=== PATIENT | male | born 1980 | race Caucasian/White ===

== ENCOUNTER 2019-05-09 15:41 | Emergency (ER) | payer SELFPAY ==
[2019-05-09 15:43] VITALS: BP 131/80; PULSE 90; RESP 18; O2SAT 98; BMI 27.8
[2019-05-09 15:53] VITALS: BP 125/92; PULSE 97; RESP 16; O2SAT 98
--- NOTE | 2019-05-09 15:53 | XR_ITS ---
WS: [id number] Portable AP upright chest, 05/09/2019 Clinical Data: chest pain Comparison: None. Findings: No nodules, masses or effusions are seen. The heart is normal. The pulmonary vascularity is not increased. No pneumonia or pneumothorax is seen. XR/XR chest 1V portable [id number] Impression: Negative chest.
--- NOTE | 2019-05-09 15:53 | ECG_ITS ---
Measurements Intervals [place] Rate: 92 P: 50 W[place]: 159 QRS: -42 QRSD: 100 T: 48 QT: 336 QTc: 417 SINUS RHYTHM LEFT AXIS DEVIATION [QRS AXIS < -30] No previous ECG available for comparison Electronically Signed On 05-09-2019 21:20:19 HAND DRAWER IN by Ellen Díaz M.D. [email or web address]
[2019-05-09 15:55] VITALS: RESP 16
[2019-05-09] MEDS: aspirin 81 mg Chew Tablet 324 MG PO (15:57)
[2019-05-09 16:06] LABS: Basophils # 0.1 10^3/uL (0.0-0.1); Basophils % 0.4 %; Eosinophils % 0.1 %; Hematocrit 44.8 % (42.0-52.0); Hemoglobin 15.5 g/dL (11.7-16.6); Lymphocytes % 9.6 %; Mean Corpuscular HGB Conc 34.6 g/dL (30.0-36.0); Mean Corpuscular Hemoglobin 31.3 pg (28.0-34.0); Mean Corpuscular Volume 90.3 fL (80-94); Mean Platelet Volume 10.9 fL (7.4-10.4); Monocytes # 1.3 10^3/uL (0.2-0.9); Monocytes % 6.2 %; Neutrophils # 16.8 10^3/uL (1.8-7.7); Neutrophils % 83.3 %; Nucleated Red Blood Cells % 0 %; Platelet Count 314 10^3/cmm (130-400); Red Blood Count 4.96 10^6/uL (4.1-5.3); Red Cell Distribution Width 13.1 % (12.1-15.1); White Blood Count 20.2 10^3/uL (4.0-10.0)
[2019-05-09 16:17] LABS: Alanine Aminotransferase 28 U/L (0-41); Albumin Level 4.5 g/dL (3.5-5.2); Alkaline Phosphatase 71 IU/L (40-130); Anion Gap 17.2 (5-19); Aspartate Amino Transferase 25 U/L (0-40); Blood Urea Nitrogen 16 mg/dL (6-20); Calcium 10.1 mg/dL (8.5-10.5); Carbon Dioxide 24 mmol/L (22-29); Chloride 98 mmol/L (98-107); Creatinine Clr Calc Pharmacy 102.8626; Globulin 3.2 g/dL (1.3-4.6); Glomerular Filtration Rate 74.1 mL/min (90-130); Glucose 108 mg/dL (65-115); Lipase 44 U/L (13-60); Potassium 4.2 mmol/L (3.5-5.1); Sodium 135 mmol/L (136-145); Total Bilirubin 0.4 mg/dL (0.15-1.2); Total Protein 7.7 g/dL (6.6-8.7)
--- NOTE | 2019-05-09 16:17 | W.ED.CHESTPA ---
Documented by User: Mike Amaral DO 05/14/19 10:28 HPI - Chest Pain General: Chief Complaint: Chest Pain Stated Complaint: CP Time Seen by Provider: 05/09/19 15:47 History of Present Illness: HPI narrative: 38-year-old male comes in complaining chest pain that began around noon today began while he was sitting at rest radiates up into his jaw not into his shoulder or back. No recent trauma no recent fever sweats chills cough. He denies any abdominal pain. No history of DVT. MD complaint: chest pain Associated symptoms: Reports dyspnea; Deny abdominal pain, fever(s), nausea or vomiting Review of Systems Const: Denies: fever, chills, body aches, change in appetite, fatigue or malaise ENMT: Denies: throat pain, ear pain, nasal discharge or nasal congestion Card: Reports: chest pain and shortness of breath on exertion; Denies: edema or shortness of breath when lying down Resp: Reports: shortness of breath; Denies: productive cough or non-productive cough GI: Denies: abdominal pain, nausea, vomiting, vomiting blood, coffee grounds in vomit, diarrhea, constipation, bloating, blood in stool or black tarry stool : Denies: flank pain, painful urination, urinary frequency or urinary urgency Skin/Breast: Denies: rash or itching PFSH ED PFSH: Social History Smoking and tobacco status: current every day smoker Physical Exam Const: COMMON NORMALS: no apparent distress GENERAL APPEARANCE: cooperative and comfortable ORIENTATION/CONSCIOUSNESS: Yes awake, Yes oriented to person, Yes oriented to place and Yes oriented to time HENMT: COMMON NORMALS: normocephalic, head/scalp atraumatic, hearing grossly normal bilaterally, external ears normal, EAC's normal, TM's normal bilaterally, nasal mucous membranes and turbinates normal, moist oral mucous membranes and oropharynx normal HEAD & SCALP: normocephalic and atraumatic NOSE: nasal mucous membranes and turbinates normal EXTERNAL EAR: Yes external ears normal EXTERNAL AUDITORY CANAL: EAC's normal TYMPANIC MEMBRANE: TM's normal bilaterally Eye: COMMON NORMALS: PERRL, EOMs intact bilaterally, conjunctivae normal and no scleral icterus CONJUNCTIVA: Yes conjunctivae normal PUPIL: Yes PERRL Neck/C-Spine: COMMON NORMALS: full ROM, no lymphadenopathy, supple and no JVD Lymph: LYMPHATIC: no lymphadenopathy noted and no lymphedema noted Resp: COMMON NORMALS: normal respiratory effort, no retractions, no use of accessory muscles and clear to auscultation bilaterally AUSCULTATION: clear to auscultation bilaterally Cardio: COMMON NORMALS: no JVD, regular rate, regular rhythm and no murmurs RATE: regular rate RHYTHM: regular rhythm GI: COMMON NORMALS: soft to palpation and no hepatosplenomegaly AUSCULTATION: Yes normoactive bowel sounds PALPATION: Yes soft, No tender, No guarding and Yes no hepatosplenomegaly Extremity: COMMON NORMALS: normal to inspection, normal capillary refill, no clubbing, cyanosis or edema, no calf tenderness and no pedal edema Neuro: SENSORIUM/ORIENTATION: Yes oriented to person, Yes oriented to place and Yes oriented to time Skin: COMMON NORMALS: no rashes or lesions noted GENERAL SKIN EXAM: no rashes or lesions noted Course ED course: Care turned over to Dr. Soni at change of shift Vital Signs: Vital signs: Vital Signs Pulse Rate 99 05/09/19 21:01 Respiratory Rate 16 05/09/19 21:01 Blood Pressure 128/81 05/09/19 21:01 Pulse Oximetry 99 05/09/19 21:01 MDM - Chest Pain Lab Data: Labs: Lab Results 05/09/19 05/09/19 05/09/19 Range/Units 15:54 15:54 15:54 WBC 20.2 H (4.0-10.0) 10^3/ uL RBC 4.96 (4.1-5.3) 10^6/u L Hgb 15.5 (11.7-16.6) g/dL Hct 44.8 (42.0-52.0) % MCV 90.3 (80-94) fL MCH 31.3 (28.0-34.0) pg MCHC 34.6 (30.0-36.0) g/dL RDW 13.1 (12.1-15.1) % Plt Count 314 (130-400) 10^3/c mm MPV 10.9 H (7.4-10.4) fL Neut % (Auto) 83.3 % Lymph % (Auto) 9.6 % [place] % (Auto) 6.2 % Eos % (Auto) 0.1 % Baso % (Auto) 0.4 % Neut # (Auto) 16.8 H (1.8-7.7) 10^3/u L Lymph # (Auto) 2.0 (0.8-4.8) 10^3/u L [place] # (Auto) 1.3 H (0.2-0.9) 10^3/u L Eos # (Auto) 0.0 (0.0-0.8) 10^3/u L Baso # (Auto) 0.1 (0.0-0.1) 10^3/u L Nucleated RBC % (a uto) 0 % Nucleated RBCs # 0.0 /100WBC PT 13.90 H (10.5-13.3) SECO NDS INR 1.07 (0.8-1.2) APTT 25.7 (23.9-36.7) SECO NDS Sodium 135 L (136-145) mmol/L Potassium 4.2 (3.5-5.1) mmol/L Chloride 98 (98-107) mmol/L Carbon Dioxide 24 (22-29) mmol/L Anion Gap 17.2 (5-19) BUN 16 (6-20) mg/dL Creatinine 1.1 (0.7-1.2) mg/dL GFR Calculation 74.1 L (90-130) mL/min Glucose 108 (65-115) mg/dL Lactic Acid (0.5-2.2) mmol/L Calcium 10.1 (8.5-10.5) mg/dL Total Bilirubin 0.4 (0.15-1.2) mg/dL AST 25 (0-40) U/L ALT 28 (0-41) U/L Alkaline Phosphata se 71 (40-130) IU/L Troponin T Baselin e (0-15) ng/mL Troponin T 120 Min yurok (0-15) ng/mL Delta Troponin T (0-10) ABS# Total Protein 7.7 (6.6-8.7) g/dL Albumin 4.5 (3.5-5.2) g/dL Globulin 3.2 (1.3-4.6) g/dL Lipase 44 (13-60) U/L Urine Color (Yellow) Urine Appearance (CLEAR) Urine pH (5-7) Ur Specific Gravit y (1.005-1.030) Urine Protein (Negative) Urine Glucose (UA) (Normal) Urine Ketones (Negative) Urine Blood (Negative) Urine Nitrate (Negative) Urine Bilirubin (NEGATIVE) Urine Urobilinogen (Negative) mg/dL Ur Leukocyte Sola ase (Negative) Urine RBC (0-2) /hpf Urine WBC (0-5) /hpf Ur Squamous Epith Cells (0-5) Urine Bacteria (NONE) Influenza Type A A g (Negative) POC Influenza B Ag (Negative) 05/09/19 05/09/19 05/09/19 Range/Units 15:54 17:55 19:02 WBC (4.0-10.0) 10^3/ uL RBC (4.1-5.3) 10^6/u L Hgb (11.7-16.6) g/dL Hct (42.0-52.0) % MCV (80-94) fL MCH (28.0-34.0) pg MCHC (30.0-36.0) g/dL RDW (12.1-15.1) % Plt Count (130-400) 10^3/c mm MPV (7.4-10.4) fL Neut % (Auto) % Lymph % (Auto) % [place] % (Auto) % Eos % (Auto) % Baso % (Auto) % Neut # (Auto) (1.8-7.7) 10^3/u L Lymph # (Auto) (0.8-4.8) 10^3/u L [place] # (Auto) (0.2-0.9) 10^3/u L Eos # (Auto) (0.0-0.8) 10^3/u L Baso # (Auto) (0.0-0.1) 10^3/u L Nucleated RBC % (a uto) % Nucleated RBCs # /100WBC PT (10.5-13.3) SECO NDS INR (0.8-1.2) APTT (23.9-36.7) SECO NDS Sodium (136-145) mmol/L Potassium (3.5-5.1) mmol/L Chloride (98-107) mmol/L Carbon Dioxide (22-29) mmol/L Anion Gap (5-19) BUN (6-20) mg/dL Creatinine (0.7-1.2) mg/dL GFR Calculation (90-130) mL/min Glucose (65-115) mg/dL Lactic Acid 0.9 (0.5-2.2) mmol/L Calcium (8.5-10.5) mg/dL Total Bilirubin (0.15-1.2) mg/dL AST (0-40) U/L ALT (0-41) U/L Alkaline Phosphata se (40-130) IU/L Troponin T Baselin e 6 (0-15) ng/mL Troponin T 120 Min yurok 6.00 (0-15) ng/mL Delta Troponin T 0 (0-10) ABS# Total Protein (6.6-8.7) g/dL Albumin (3.5-5.2) g/dL Globulin (1.3-4.6) g/dL Lipase (13-60) U/L Urine Color (Yellow) Urine Appearance (CLEAR) Urine pH (5-7) Ur Specific Gravit y (1.005-1.030) Urine Protein (Negative) Urine Glucose (UA) (Normal) Urine Ketones (Negative) Urine Blood (Negative) Urine Nitrate (Negative) Urine Bilirubin (NEGATIVE) Urine Urobilinogen (Negative) mg/dL Ur Leukocyte Sola ase (Negative) Urine RBC (0-2) /hpf Urine WBC (0-5) /hpf Ur Squamous Epith Cells (0-5) Urine Bacteria (NONE) Influenza Type A A g (Negative) POC Influenza B Ag (Negative) 05/09/19 05/09/19 Range/Units 19:17 19:43 WBC (4.0-10.0) 10^3/ uL RBC (4.1-5.3) 10^6/u L Hgb (11.7-16.6) g/dL Hct (42.0-52.0) % MCV (80-94) fL MCH (28.0-34.0) pg MCHC (30.0-36.0) g/dL RDW (12.1-15.1) % Plt Count (130-400) 10^3/c mm MPV (7.4-10.4) fL Neut % (Auto) % Lymph % (Auto) % [place] % (Auto) % Eos % (Auto) % Baso % (Auto) % Neut # (Auto) (1.8-7.7) 10^3/u L Lymph # (Auto) (0.8-4.8) 10^3/u L [place] # (Auto) (0.2-0.9) 10^3/u L Eos # (Auto) (0.0-0.8) 10^3/u L Baso # (Auto) (0.0-0.1) 10^3/u L Nucleated RBC % (a uto) % Nucleated RBCs # /100WBC PT (10.5-13.3) SECO NDS INR (0.8-1.2) APTT (23.9-36.7) SECO NDS Sodium (136-145) mmol/L Potassium (3.5-5.1) mmol/L Chloride (98-107) mmol/L Carbon Dioxide (22-29) mmol/L Anion Gap (5-19) BUN (6-20) mg/dL Creatinine (0.7-1.2) mg/dL GFR Calculation (90-130) mL/min Glucose (65-115) mg/dL Lactic Acid (0.5-2.2) mmol/L Calcium (8.5-10.5) mg/dL Total Bilirubin (0.15-1.2) mg/dL AST (0-40) U/L ALT (0-41) U/L Alkaline Phosphata se (40-130) IU/L Troponin T Baselin e (0-15) ng/mL Troponin T 120 Min yurok (0-15) ng/mL Delta Troponin T (0-10) ABS# Total Protein (6.6-8.7) g/dL Albumin (3.5-5.2) g/dL Globulin (1.3-4.6) g/dL Lipase (13-60) U/L Urine Color Yellow (Yellow) Urine Appearance Clear (CLEAR) Urine pH 7 (5-7) Ur Specific Gravit y 1.005 (1.005-1.030) Urine Protein Neg (Negative) Urine Glucose (UA) Norm (Normal) Urine Ketones Negative (Negative) Urine Blood Neg (Negative) Urine Nitrate Negative (Negative) Urine Bilirubin Neg (NEGATIVE) Urine Urobilinogen Norm (Negative) mg/dL Ur Leukocyte Sola ase Negative (Negative) Urine RBC None (0-2) /hpf Urine WBC None (0-5) /hpf Ur Squamous Epith Cells None (0-5) Urine Bacteria Trace (NONE) Influenza Type A A g Negative (Negative) POC Influenza B Ag Negative (Negative) Discharge Plan Discharge Patient Disposition: Home, Self-Care Clinical Impression: Influenza Chest pain Qualifiers: Chest pain type: chest pain on breathing Qualified Code(s): R07.1 - Chest pain on breathing Leukocytosis Qualifiers: Leukocytosis type: unspecified Qualified Code(s): D72.829 - Elevated white blood cell count, unspecified Condition: Stable Prescriptions: New Levaquin 500 mg tablet 500 mg PO DAILY 10 Days RF: 0 No Action aspirin 81 mg Tablet,Delayed Release (Dr/Ec) 81 mg PO DAILY RF: 0 Discharge Orders: Discharge Order (Routine); Ordered 05/09/19 Ordered By: Missy Schmidt Referrals: Kiara Fox DO [Physician] - 1-3 days Discharge Diet: Usual diet Discharge Activity: Increase activity as tolerated Patient Instructions: Chest Pain (ED), Influenza (ED), Leukocytosis (ED) Activity Restrictions/Additional Instructions: Please return to the ER immediately for any of the signs or symptoms listed on your discharge instruction sheets, worsening/changing of your symptoms, you are not getting better as quickly as expected, or for ANY other cause or concerns. I have offered to place her in the hospital for further cardiac evaluation and for evaluation of your fever and white count but you have declined. If you change your mind or your symptoms change/worsen at any time you are more than welcome to return to the ER for recheck and further evaluation and care. Be certain to follow-up at the [facility] or [place] [facility] [place] for recheck. If for any reason you are unable to be seen there return here to the ER for recheck. Stand Alone Forms: Work/School Release Discharge Date/Time: 05/09/19 21:02 Sign Out Sign Out Data: Patient Sign Out occurred on 05/09/19 at 18:29. Patient's care was discussed, and care was transferred from Mike Amaral DO to Missy Schmidt. Sign Out Comment: CTA chest pending, Last updated by Mike Amaral DO at 05/09/19 18:12 Coding Level of Care Code ED Qa Automation Developer for Chg Fwd Documented by User: Missy Schmidt 05/10/19 02:26 HPI - Chest Pain General: Chief Complaint: Chest Pain Stated Complaint: CP Time Seen by Provider: 05/09/19 15:47 PFSH ED PFSH: Social History Smoking and tobacco status: current every day smoker Course Vital Signs: Vital signs: Vital Signs Pulse Rate 99 05/09/19 21:01 Respiratory Rate 16 05/09/19 21:01 Blood Pressure 128/81 05/09/19 21:01 Pulse Oximetry 99 05/09/19 21:01 MDM - Chest Pain MDM Narrative: Medical decision making narrative: 1800 -Case signed over to me at change of shift from Dr. Amaral. Patient endorsed to me as chest pain at rest starting earlier today. Patient's not had any risk factors but cardiac evaluation underway. CTA also ordered. Upon my history the patient states he had constant chest pain since earlier today. He describes the pain as a sharp stabbing pain made worse by deep breathing. He denies any shortness of breath, diaphoresis, nausea vomiting or radiation of his symptoms. He states his pain is waxed and waned but has been constant since 11 AM. Discharge -the patient has had constant chest pain for over 8 hours. I believe this rules out a cardiac cause for his pain. Per the hospital chest pain pathway he has had pain beyond 6 hours with no EKG changes and one negative troponin should rule him out but he now has 2. Patient CTA is negative for dissection or PE. The patient now relates to me that he has a fever this morning. He states he is been chilled. He states he feels like he is coming down with the flu and he has known flu exposures. The flu is rampant in the area at this time. The patient declines to stay in the hospital as I have endorsed this more so to evaluate him for his pronounced leukocytosis but also to have a formal cardiac rule out. The patient declines but he states he is willing to get rechecked as I have suggested. He will follow[place] either [place] [facility] [place] or or at the [facility] walk-in clinic. He understands if for any reason he cannot be seen there he will return here for recheck. Lab Data: Attestation: I reviewed the patient's lab results. Labs: Lab Results 05/09/19 05/09/19 05/09/19 Range/Units 15:54 15:54 15:54 WBC 20.2 H (4.0-10.0) 10^3/ uL RBC 4.96 (4.1-5.3) 10^6/u L Hgb 15.5 (11.7-16.6) g/dL Hct 44.8 (42.0-52.0) % MCV 90.3 (80-94) fL MCH 31.3 (28.0-34.0) pg MCHC 34.6 (30.0-36.0) g/dL RDW 13.1 (12.1-15.1) % Plt Count 314 (130-400) 10^3/c mm MPV 10.9 H (7.4-10.4) fL Neut % (Auto) 83.3 % Lymph % (Auto) 9.6 % [place] % (Auto) 6.2 % Eos % (Auto) 0.1 % Baso % (Auto) 0.4 % Neut # (Auto) 16.8 H (1.8-7.7) 10^3/u L Lymph # (Auto) 2.0 (0.8-4.8) 10^3/u L [place] # (Auto) 1.3 H (0.2-0.9) 10^3/u L Eos # (Auto) 0.0 (0.0-0.8) 10^3/u L Baso # (Auto) 0.1 (0.0-0.1) 10^3/u L Nucleated RBC % (a uto) 0 % Nucleated RBCs # 0.0 /100WBC PT 13.90 H (10.5-13.3) SECO NDS INR 1.07 (0.8-1.2) APTT 25.7 (23.9-36.7) SECO NDS Sodium 135 L (136-145) mmol/L Potassium 4.2 (3.5-5.1) mmol/L Chloride 98 (98-107) mmol/L Carbon Dioxide 24 (22-29) mmol/L Anion Gap 17.2 (5-19) BUN 16 (6-20) mg/dL Creatinine 1.1 (0.7-1.2) mg/dL GFR Calculation 74.1 L (90-130) mL/min Glucose 108 (65-115) mg/dL Lactic Acid (0.5-2.2) mmol/L Calcium 10.1 (8.5-10.5) mg/dL Total Bilirubin 0.4 (0.15-1.2) mg/dL AST 25 (0-40) U/L ALT 28 (0-41) U/L Alkaline Phosphata se 71 (40-130) IU/L Troponin T Baselin e (0-15) ng/mL Troponin T 120 Min y[place]k (0-15) ng/mL Delta Troponin T (0-10) ABS# Total Protein 7.7 (6.6-8.7) g/dL Albumin 4.5 (3.5-5.2) g/dL Globulin 3.2 (1.3-4.6) g/dL Lipase 44 (13-60) U/L Urine Color (Yellow) Urine Appearance (CLEAR) Urine pH (5-7) Ur Specific Gravit y (1.005-1.030) Urine Protein (Negative) Urine Glucose (UA) (Normal) Urine Ketones (Negative) Urine Blood (Negative) Urine Nitrate (Negative) Urine Bilirubin (NEGATIVE) Urine Urobilinogen (Negative) mg/dL Ur Leukocyte Sola ase (Negative) Urine RBC (0-2) /hpf Urine WBC (0-5) /hpf Ur Squamous Epith Cells (0-5) Urine Bacteria (NONE) Influenza Type A A g (Negative) POC Influenza B Ag (Negative) 05/09/19 05/09/19 05/09/19 Range/Units 15:54 17:55 19:02 WBC (4.0-10.0) 10^3/ uL RBC (4.1-5.3) 10^6/u L Hgb (11.7-16.6) g/dL Hct (42.0-52.0) % MCV (80-94) fL MCH (28.0-34.0) pg MCHC (30.0-36.0) g/dL RDW (12.1-15.1) % Plt Count (130-400) 10^3/c mm MPV (7.4-10.4) fL Neut % (Auto) % Lymph % (Auto) % [place] % (Auto) % Eos % (Auto) % Baso % (Auto) % Neut # (Auto) (1.8-7.7) 10^3/u L Lymph # (Auto) (0.8-4.8) 10^3/u L [place] # (Auto) (0.2-0.9) 10^3/u L Eos # (Auto) (0.0-0.8) 10^3/u L Baso # (Auto) (0.0-0.1) 10^3/u L Nucleated RBC % (a uto) % Nucleated RBCs # /100WBC PT (10.5-13.3) SECO NDS INR (0.8-1.2) APTT (23.9-36.7) SECO NDS Sodium (136-145) mmol/L Potassium (3.5-5.1) mmol/L Chloride (98-107) mmol/L Carbon Dioxide (22-29) mmol/L Anion Gap (5-19) BUN (6-20) mg/dL Creatinine (0.7-1.2) mg/dL GFR Calculation (90-130) mL/min Glucose (65-115) mg/dL Lactic Acid 0.9 (0.5-2.2) mmol/L Calcium (8.5-10.5) mg/dL Total Bilirubin (0.15-1.2) mg/dL AST (0-40) U/L ALT (0-41) U/L Alkaline Phosphata se (40-130) IU/L Troponin T Baselin e 6 (0-15) ng/mL Troponin T 120 Min yurok 6.00 (0-15) ng/mL Delta Troponin T 0 (0-10) ABS# Total Protein (6.6-8.7) g/dL Albumin (3.5-5.2) g/dL Globulin (1.3-4.6) g/dL Lipase (13-60) U/L Urine Color (Yellow) Urine Appearance (CLEAR) Urine pH (5-7) Ur Specific Gravit y (1.005-1.030) Urine Protein (Negative) Urine Glucose (UA) (Normal) Urine Ketones (Negative) Urine Blood (Negative) Urine Nitrate (Negative) Urine Bilirubin (NEGATIVE) Urine Urobilinogen (Negative) mg/dL Ur Leukocyte Sola ase (Negative) Urine RBC (0-2) /hpf Urine WBC (0-5) /hpf Ur Squamous Epith Cells (0-5) Urine Bacteria (NONE) Influenza Type A A g (Negative) POC Influenza B Ag (Negative) 05/09/19 05/09/19 Range/Units 19:17 19:43 WBC (4.0-10.0) 10^3/ uL RBC (4.1-5.3) 10^6/u L Hgb (11.7-16.6) g/dL Hct (42.0-52.0) % MCV (80-94) fL MCH (28.0-34.0) pg MCHC (30.0-36.0) g/dL RDW (12.1-15.1) % Plt Count (130-400) 10^3/c mm MPV (7.4-10.4) fL Neut % (Auto) % Lymph % (Auto) % [place] % (Auto) % Eos % (Auto) % Baso % (Auto) % Neut # (Auto) (1.8-7.7) 10^3/u L Lymph # (Auto) (0.8-4.8) 10^3/u L [place] # (Auto) (0.2-0.9) 10^3/u L Eos # (Auto) (0.0-0.8) 10^3/u L Baso # (Auto) (0.0-0.1) 10^3/u L Nucleated RBC % (a uto) % Nucleated RBCs # /100WBC PT (10.5-13.3) SECO NDS INR (0.8-1.2) APTT (23.9-36.7) SECO NDS Sodium (136-145) mmol/L Potassium (3.5-5.1) mmol/L Chloride (98-107) mmol/L Carbon Dioxide (22-29) mmol/L Anion Gap (5-19) BUN (6-20) mg/dL Creatinine (0.7-1.2) mg/dL GFR Calculation (90-130) mL/min Glucose (65-115) mg/dL Lactic Acid (0.5-2.2) mmol/L Calcium (8.5-10.5) mg/dL Total Bilirubin (0.15-1.2) mg/dL AST (0-40) U/L ALT (0-41) U/L Alkaline Phosphata se (40-130) IU/L Troponin T Baselin e (0-15) ng/mL Troponin T 120 Min yurok (0-15) ng/mL Delta Troponin T (0-10) ABS# Total Protein (6.6-8.7) g/dL Albumin (3.5-5.2) g/dL Globulin (1.3-4.6) g/dL Lipase (13-60) U/L Urine Color Yellow (Yellow) Urine Appearance Clear (CLEAR) Urine pH 7 (5-7) Ur Specific Gravit y 1.005 (1.005-1.030) Urine Protein Neg (Negative) Urine Glucose (UA) Norm (Normal) Urine Ketones Negative (Negative) Urine Blood Neg (Negative) Urine Nitrate Negative (Negative) Urine Bilirubin Neg (NEGATIVE) Urine Urobilinogen Norm (Negative) mg/dL Ur Leukocyte Sola ase Negative (Negative) Urine RBC None (0-2) /hpf Urine WBC None (0-5) /hpf Ur Squamous Epith Cells None (0-5) Urine Bacteria Trace (NONE) Influenza Type A A g Negative (Negative) POC Influenza B Ag Negative (Negative) Imaging Data^: CT Chest: Radiologist's impression: [address] [address] [address] Scan Report Signed Patient: Cj Galaviz V Unit #: [id number] : 1980 Age/Sex: 38 / M ADM Date: 05/09/19 Loc: ER Room/Bed: Attending Dr: Ordering Provider/Ordering MD: Mike Amaral DO Date of Service: 05/09/19 Procedure(s): CT angio chest PE protcl [id number] Accession Number(s): [id number] Report Number: [id number] PROCEDURE INFORMATION: Exam: CT Angiography Chest With Contrast Exam date and time: 05/09/2019 6:34 PM Age: 38 years old Clinical indication: Dyspnea; Chest pain; Additional info: Cuauhtemoc pain, tachy cardia, dyspnea TECHNIQUE: Imaging protocol: Computed tomographic angiography of the chest with intravenous contrast. 3D rendering: MIP and/or 3D reconstructed images were created by the technologist. Total DLP: 625.57 mGy-cm Radiation optimization: All CT scans at this facility use at least one of these dose optimization techniques: automated exposure control; mA and/or kV adjustment per patient size (includes targeted exams where dose is matched to clinical indication); or iterative reconstruction. Contrast material: OMNI 350; Contrast volume: 95 ml; Contrast route: IV; COMPARISON: CR XR chest 1V portable [id number] 05/09/2019 3:56 PM FINDINGS: Pulmonary arteries: Normal. No pulmonary emboli. Aorta: Unremarkable. No aortic aneurysm. No aortic dissection. Lungs: Mild dependent atelectasis. The lungs are otherwise clear. Pleural space: Unremarkable. No pneumothorax. No pleural effusion. Heart: Unremarkable. No cardiomegaly. No pericardial effusion. Lymph nodes: Unremarkable. No enlarged lymph nodes. Bones/joints: Mild thoracic scoliosis. Soft tissues: Unremarkable. CT/CT angio chest PE protcl [id number] IMPRESSION: 1. No evidence for pulmonary embolus or other acute abnormality. Radiation Dose CTDIVOL = (mGy): DLP = 625.57 (mGy-cm) Dictated By: Leonel Pina Signed By: Leonel Pina Signed Date/Time: 05/09/191912 DD/ 11 EKG Data^: EKG 1: Attestation: I personally reviewed and interpreted this EKG as follows: EKG interpretation date: 05/09/19 EKG interpretation time: 15:49 Interpretation: Normal sinus rhythm at 92 beats a minute, left axis deviation, no acute ST or T wave changes. Normal intervals, no blocks. No old for comparison. EKG 2: Attestation: I personally reviewed and interpreted this EKG as follows: EKG interpretation date: 05/09/19 EKG interpretation time: 18:15 Interpretation: Normal sinus rhythm at 93 beats a minute, left axis deviation, normal intervals, no blocks, unchanged from previous. Discharge Plan Discharge Patient Disposition: Home, Self-Care Clinical Impression: Influenza Chest pain Qualifiers: Chest pain type: chest pain on breathing Qualified Code(s): R07.1 - Chest pain on breathing Leukocytosis Qualifiers: Leukocytosis type: unspecified Qualified Code(s): D72.829 - Elevated white blood cell count, unspecified Condition: Stable Prescriptions: New Levaquin 500 mg tablet 500 mg PO DAILY 10 Days RF: 0 No Action aspirin 81 mg Tablet,Delayed Release (Dr/Ec) 81 mg PO DAILY RF: 0 Discharge Orders: Discharge Order (Routine); Ordered 05/09/19 Ordered By: Missy Schmidt Referrals: Kiara Fox DO [Physician] - 1-3 days Discharge Diet: Usual diet Discharge Activity: Increase activity as tolerated Patient Instructions: Chest Pain (ED), Influenza (ED), Leukocytosis (ED) Activity Restrictions/Additional Instructions: Please return to the ER immediately for any of the signs or symptoms listed on your discharge instruction sheets, worsening/changing of your symptoms, you are not getting better as quickly as expected, or for ANY other cause or concerns. I have offered to place her in the hospital for further cardiac evaluation and for evaluation of your fever and white count but you have declined. If you change your mind or your symptoms change/worsen at any time you are more than welcome to return to the ER for recheck and further evaluation and care. Be certain to follow-up at the [facility] or [place] [facility] [place] Monday for recheck. If for any reason you are unable to be seen there return here to the ER for recheck. Stand Alone Forms: Work/School Release Discharge Date/Time: 05/09/19 21:02 Sign Out Sign Out Data: Patient Sign Out occurred on 05/09/19 at 18:29. Patient's care was discussed, and care was transferred from Mike Amaral DO to Missy Schmidt. Sign Out Comment: CTA chest pending, Last updated by Mike Amaral DO at 05/09/19 18:12 Coding Level of Care Code ED [employer] for [employer]
[2019-05-09 16:18] LABS: INR 1.07 (0.8-1.2); Partial Thromboplastin Time 25.7 SECONDS (23.9-36.7)
[2019-05-09 16:19] LABS: Troponin(5th) Baseline 6 ng/mL (0-15)
--- NOTE | 2019-05-09 17:39 | CTR_ITS ---
PROCEDURE INFORMATION: Exam: CT Angiography Chest With Contrast Exam date and time: 05/09/2019 6:34 PM Age: 38 years old Clinical indication: Dyspnea; Chest pain; Additional info: [place]em[place] pain, tachy cardia, dyspnea TECHNIQUE: Imaging protocol: Computed tomographic angiography of the chest with intravenous contrast. 3D rendering: MIP and/or 3D reconstructed images were created by the technologist. Total DLP: 625.57 mGy-cm Radiation optimization: All CT scans at this facility use at least one of these dose optimization techniques: automated exposure control; mA and/or kV adjustment per patient size (includes targeted exams where dose is matched to clinical indication); or iterative reconstruction. Contrast material: OMNI 350; Contrast volume: 95 ml; Contrast route: IV; COMPARISON: CR XR chest 1V portable [id number] 05/09/2019 3:56 PM FINDINGS: Pulmonary arteries: Normal. No pulmonary emboli. Aorta: Unremarkable. No aortic aneurysm. No aortic dissection. Lungs: Mild dependent atelectasis. The lungs are otherwise clear. Pleural space: Unremarkable. No pneumothorax. No pleural effusion. Heart: Unremarkable. No cardiomegaly. No pericardial effusion. Lymph nodes: Unremarkable. No enlarged lymph nodes. Bones/joints: Mild thoracic scoliosis. Soft tissues: Unremarkable. CT/CT angio chest PE protcl [id number] IMPRESSION: 1. No evidence for pulmonary embolus or other acute abnormality. Radiation Dose CTDIVOL = (mGy): DLP = 625.57 (mGy-cm)
[2019-05-09 18:31] LABS: Troponin 5 2HR Delta 0 ABS# (0-10)
[2019-05-09] MEDS: iohexol 350 mg/mL 100 mL Btl 95 ML IV (18:37)
[2019-05-09 18:47] VITALS: PULSE 98; RESP 15; O2SAT 97
--- NOTE | 2019-05-09 19:13 | PC.NURSE ---
report received from MARIO Werner and care transferred to MARIO Fernandez
[2019-05-09 19:29] LABS: Lactic Sepsis W/Reflex 0.9 mmol/L (0.5-2.2)
[2019-05-09 19:41] LABS: Bilirubin Urine Neg (NEGATIVE); Blood Urine Neg (Negative); Glucose Urine UA Norm (Normal); Ketones Urine Negative (Negative); Leukocyte Esterase Urine Negative (Negative); Nitrate Urine Negative (Negative); Protein Urine Neg (Negative); Specific Gravity, Urine 1.005 (1.005-1.030); Urine Appearance Clear (CLEAR); Urine Color Yellow (Yellow); Urobilinogen Urine Norm (Negative); pH Urine 7 (5-7)
[2019-05-09 19:42] LABS: Add Urine Culture? No; Bacteria Urine TRACE
[2019-05-09 20:17] LABS: Influenza A by IFA Negative (Negative); Influenza B by IFA Negative (Negative)
[2019-05-09] MEDS: oseltamivir phosphate 75 mg Capsule PO (20:40)
[2019-05-09] MEDS: levoFLOXacin 750 mg Tablet PO (20:40)
[2019-05-09 21:01] VITALS: BP 128/81; PULSE 99; RESP 16; O2SAT 99
--- NOTE | 2019-05-09 21:53 | ECG_ITS ---
Measurements Intervals [place] Rate: 93 P: 57 [place]: 161 QRS: -45 QRSD: 96 T: 57 QT: 349 QTc: 435 SINUS RHYTHM LEFT AXIS DEVIATION [QRS AXIS < -30] No previous ECG available for comparison Electronically Signed On 05-09-2019 21:23:39 [employer] by Ellen Díaz M.D. [email or web address]
== END 2019-05-09 21:02 | disposition home or self-care (01) ==
PROVIDERS: Family Medicine; Emergency Provider Emergency Medicine
DX: J11.1 Influenza due to unidentified influenza virus with other respiratory manifestations (principal); R07.9 Chest pain, unspecified; D72.829 Elevated white blood cell count, unspecified; F17.200 Nicotine dependence, unspecified, uncomplicated
CPT/HCPCS: 71045; 71275; 80053; 81001; 83605; 83690; 84484; 85025; 85610; 85730; 87040; 87804; 93005; 96374; 99283; 99284; Q9967